=== PATIENT | male | born 1985 | race American Indian/Alaskan Native ===

== ENCOUNTER 2020-05-24 15:25 | Emergency (ER) | payer BC, OTHER ==
[~2020-05-24] VITALS: Ht 172.7 cm; Wt 113.4 kg
[~2020-05-24 15:25] MED LIST: ZOFRAN4 MG PO
[2020-05-24] MEDS ORDERED: TUMS300 MG PO (18:31)
--- NOTE | 2020-05-25 22:02 | EKG ---
[facility] [address] [place], [place] [address] Signed Atrial fibrillation with rapid ventricular response Abnormal ECG No previous ECGs available Confirmed by NATALYA GOMEZ MD ([id number]) on 05/25/2020 10:02:31 PM Electronically Signed By: NATALYA GOMEZ MD 05/25/202201 PATIENT NAME: IDALIA KEARNEYRafaela MARINO Electrocardiogram DATE OF : 81 PHYSICIAN: NATALYA GOMEZ MD REPORT #: [id number] REPORT IS CONFIDENTIAL AND NOT TO BE RELEASED WITHOUT AUTHORIZATION
--- NOTE | 2020-05-25 22:03 | EKG ---
[facility] [address] [place] [address] Signed Normal sinus rhythm Normal ECG When compared with ECG of 24-MAY-2020 15:32, (Unconfirmed) Sinus rhythm has replaced Atrial fibrillation Vent. rate has decreased BY 69 BPM Confirmed by NATALYA GOMEZ MD ([id number]) on 05/25/2020 10:03:31 PM Electronically Signed By: NATALYA GOMEZ MD 05/25/202202 PATIENT NAME: IDALIA KEARNEY JOHN MARINO Electrocardiogram DATE OF : 81 PHYSICIAN: NATALYA GOMEZ MD REPORT #: [id number] REPORT IS CONFIDENTIAL AND NOT TO BE RELEASED WITHOUT AUTHORIZATION
== END 2020-05-24 20:32 | disposition home or self-care (01) ==
LOC: ED 15:25
DX: I48.91 Unspecified atrial fibrillation (principal); F17.200 Nicotine dependence, unspecified, uncomplicated
CPT/HCPCS: 71046; 80053; 83735; 84484; 85025; 92960; 93005; 93010; 99152; 99285-25; J2704; J7030

== ENCOUNTER 2021-09-07 11:52 | Emergency (ER) | payer BC, OTHER ==
[~2021-09-07] VITALS: Ht 172.7 cm; Wt 114.5 kg
[~2021-09-07 11:52] MED LIST changes: +TUMS ULTRA STR470 MG PO
--- OUTSIDE RECORDS SUMMARY | 2021-09-07 12:21 | XMS ---
PreManage Notification: IDALIA KEARNEY Security [employer] Events No recent Security Events currently on file CRITERIA MET - [facility] - 2 Visits in 30 Days CARE PROVIDERS There are no care providers on record at this time. Nixon has no Care Guidelines for this patient. Jaycee VISIT COUNT (12 MO.) [address] [facility] TOTAL 2 NOTE: Visits indicate total known visits. ED/C VISIT TRACKING (12 MO.) [facility] COMPLAINT: - ABD PAIN, CONSTIPATION, LOWER BACK PAIN 09/06/2021 20:09 [facility] Andrew OR TYPE: Emergency COMPLAINT: - PELVIC PAIN INPATIENT VISIT TRACKING (12 MO.) No inpatient visits to display in this time frame [email or web address]
[2021-09-07] MEDS ORDERED: AMOX TR-K CLV1 EAC1 PO (16:12)
== END 2021-09-07 16:41 | disposition home or self-care (01) ==
LOC: ED 11:52
DX: K57.32 Diverticulitis of large intestine without perforation or abscess without bleeding (principal); F17.210 Nicotine dependence, cigarettes, uncomplicated; Z91.038 Other insect allergy status; Z88.5 Allergy status to narcotic agent
CPT/HCPCS: 36415; 74177; 83690; 99284-25